=== PATIENT | male | born 1995 | race Caucasian/White ===

== ENCOUNTER 2017-10-14 05:35 | Emergency (ER) | payer OTHER ==
[~2017-10-14] VITALS: Ht 182.9 cm; Wt 91.4 kg
[2017-10-14 05:43] VITALS: Ht 182.9 cm; Wt 91.4 kg
[2017-10-14] MEDS ORDERED: SOD CHLORIDE 0.9% 500 ML IV STA (06:34)
--- NOTE | 2017-10-14 06:49 | RADRPT ---
PROCEDURE: Chest. CLINICAL INDICATION: Chest pain. TECHNIQUE: Single frontal view of the chest was obtained. COMPARISON: None. FINDINGS: The cardiac silhouette is magnified. The aortic arch is unremarkable. There is no focal consolidat ion, vascular congestion or pleural effusion. There is no pneumothorax. IMPRESSION: No evidence for active cardiopulmonary disease. .Wander Viera MD, MD Date Time Electronically viewed and signed by .Wander Viera MD, on 10/14/2017 06:49 .T/
--- NOTE | 2017-10-14 07:13 | ERD ---
ER Documentation Chief Complaint Chief Complaint Pt. states he was reading and lost consciousness for "about 1 minute" HPI This is a 22-year-old male with no significant past medical history presents to the emergency room with a syncopal episode. The patient states that he woke up this morning and was laying on his side. When he reached for his alarm clock he felt a pulling sensation and a tearing sensation along the left pectoralis muscle. He also felt a wet dripping sensation in the same area. He states that he was not wet. He then sat up on the edge of the bed to read his phone. After short period of time he collapsed. The patient fell to the ground it was carpeted. He may have hit his head but woke up immediately and had no witnessed seizure activity. The patient had no incontinence and no postictal state. He states that he still has some mild discomfort in the left pectoralis muscle that is worse with rotational movement. He denies any prodrome of pleuritic pain, no fevers or chills or cough. No exertional syncope history, no family history of early cardiac disease Though there is cardiac disease within the family. ROS All systems reviewed and are negative except as per history of present illness. Medications Home Meds No Active Prescriptions or Reported Meds Allergies Allergies: Coded Allergies: No Known Allergy (Unverified , 10/14/17) PMhx/Soc Medical and Surgical Hx: pt denies Medical Hx, pt denies Surgical Hx FmHx Family History: coronary disease, No diabetes Physical Exam Vitals Vital Signs Date Time Temp Pulse Resp B/P Pulse Ox O2 Delivery O2 Flow Rate FiO2 10/14/17 05:43 96.8 53 22 140/90 99 Physical Exam General: Well developed, well nourished, no acute distress Head: Normocephalic, atraumatic. Eyes: Pupils equally reactive, EOM intact ENT: Moist mucous membranes Neck: Supple, no lymphadenopathy Respiratory: Lungs clear bilaterally, no distress, reproducible soft tissue tenderness along the left pectoralis muscle without rash Cardiovascular: RRR, no murmurs, rubs, or gallops Abdominal: Soft, non-tender, non-distended, no peritoneal signs : Deferred MSK: No edema, no unilateral swelling, 5/5 strength, no pulse deficits Neurologic: Alert and oriented, moving all extremities, normal speech, no focal weakness, no cerebellar signs Skin: No rash Psych: Normal mood Result Diagram: 10/14/17 0700 10/14/17 0700 Results 24 hrs Laboratory Tests Test 10/14/17 07:00 White Blood Count 7.310^3/ul Red Blood Count 5.2110^6/ul Hemoglobin 16.2g/dl Hematocrit 45.0% Mean Corpuscular Volume 86.4fl Mean Corpuscular Hemoglobin 31.1pg Mean Corpuscular Hemoglobin Concent 36.0g/dl Red Cell Distribution Width 12.6% Platelet Count 70799^3/UL Mean Platelet Volume 9.9fl Neutrophils % 49.1% Lymphocytes % 33.2% Monocytes % 9.1% Eosinophils % 7.8% Basophils % 0.5% Nucleated Red Blood Cells % 0.0/100WBC Neutrophils # 3.610^3/ul Lymphocytes # 2.410^3/ul Monocytes # 0.710^3/ul Eosinophils # 0.610^3/ul Basophils # 0.010^3/ul Nucleated Red Blood Cells # 0.010^3/ul Sodium Level 143mmol/L Potassium Level 3.5mmol/L Chloride Level 105mmol/L Carbon Dioxide Level 28mmol/L Anion Gap 14 Blood Urea Nitrogen 15mg/dl Creatinine 0.94mg/dl Glucose Level 88mg/dl Calcium Level 9.2mg/dl Troponin I < 0.012ng/ml Current Medications Medications (Trade) Dose Ordered Sig/Jessica Route PRN Reason Start Time Stop Time Status Last Admin Dose Admin Sodium Chloride (NS) 500 ml @ 500 mls/hr Q1H STAT IV 10/14/17 06:34 10/14/17 07:33 DC 10/14/17 07:26 IV Flush 10 ml 10 ml STK-MED ONCE .ROUTE 10/14/17 07:58 10/14/17 07:59 DC Sodium Chloride 100 ml @ ud STK-MED ONCE .ROUTE 10/14/17 07:58 10/14/17 07:59 DC Iohexol (Omnipaque) 100 ml @ ud STK-MED ONCE .ROUTE 10/14/17 07:58 10/14/17 07:59 DC Iohexol (Omnipaque 350mg/ ml) 50 ml STK-MED ONCE .ROUTE 10/14/17 07:58 10/14/17 07:59 DC Procedures/MDM EKG, MONITORS, & DIAGNOSTIC IMAGING: EKG: I reviewed and interpreted a 12-lead EKG. Rhythm: Normal sinus rhythm Ectopy: None Intervals: No abnormalities, normal QRS and QTC, no Brugada ST segments: No elevations or depressions T waves: No contiguous inversions Chest x-ray: I reviewed and interpreted a 1 view of the chest Mediastinum: No enlargement Cardiac silhouette: No cardiomegaly Airspace: Clear lung foster bilaterally without evidence of pneumothorax Bones: No evidence of fracture CTA for dissection: IMPRESSION: 1. No evidence of aortic dissection or aneurysm. 2. No central pulmonary emboli. 3. No evidence of lung infiltrates, pulmonary nodules, thoracic lymphadenopathy or effusions. LAB INTERPRETATION: Negative troponin, normal electrolytes MEDICAL DECISION MAKING: The patient presents with an odd presentation. He had a pulling sensation in his chest with a white dripping sensation in his chest and then a syncopal episode. I believe the most common explanation for the patient's symptoms is a pain response leading to orthostasis versus vasovagal syncope. However what is bizarre is at the patient had some chest pain and then a syncopal episode. This we are dripping sensation could be described as a neurologic sign that may suggest possibility of dissection though the patient has no migratory pain and no risk factors for dissection. Additionally the patient has no pleuritic pain no shortness of breath no tachycardia no signs of DVT. I do not believe this is consistent with pulmonary embolism. The patient has no exertional signs or symptoms concerning for cardiomyopathy. The patient has no murmur. No fevers or chills. The patient has an EKG that shows normal QRS and QTC with no evidence of Brugada. ER COURSE: The patient's laboratory testing and diagnostic imaging is otherwise unrevealing. CT shows no evidence of PE or dissection. The patient is resting comfortably. Again we talked about his head injury. The patient states that he may have hit his head. He has a small abrasion on the forehead. However no signs or symptoms concerning for clinically significant traumatic brain injury. I believe the risks of radiation outweigh the benefits of CT imaging. He has a nonfocal neurologic exam. At this point I feel the patient can be safely discharged home. He was advised to establish a primary care physician and may require further outpatient workup for syncope if this reoccurs. I kept the patient and/or family informed of laboratory and diagnostic imaging results throughout the emergency room course. DISPOSITION PLAN: We discussed follow up with the patient's primary care doctor within 24 to 48 hours as needed. We also discussed return to the emergency room for worsening symptoms or worsening condition. Outpatient referral: Primary are Discharge Medications: OTC APAP and motrin Departure Diagnosis: Primary Impression: Syncope Syncope type: vasovagal syncope Qualified Code: R55 - Vasovagal syncope Condition: Stable MAXIMILIAN MCADAMS MD Oct 14, 2017 07:13
[2017-10-14 07:36] LABS: BASOPHILS % 0.5 % (0.0-2.0); EOSINOPHILS # 0.6 10^3/ul (0.0-0.5); EOSINOPHILS % 7.8 % (0.0-7.0); HEMOGLOBIN 16.2 g/dl (14.0-18.0); LYMPHOCYTES # 2.4 10^3/ul (0.8-2.9); LYMPHOCYTES % 33.2 % (15.0-51.0); MEAN CORPUSCULAR HEMOGLOBIN 31.1 pg (29.0-33.0); MEAN CORPUSCULAR VOLUME 86.4 fl (82.0-101.0); MEAN PLATELET VOLUME 9.9 fl (7.4-10.4); MONOCYTE # 0.7 10^3/ul (0.3-0.9); MONOCYTES % 9.1 % (0.0-11.0); NEUTROPHIL # 3.6 10^3/ul (1.6-7.5); NEUTROPHILS % 49.1 % (39.0-77.0); PLATELET COUNT 225 10^3/UL (140-415); RED BLOOD COUNT 5.21 10^6/ul (4.70-6.10); RED CELL DISTRIBUTION WIDTH 12.6 % (11.5-14.5); WHITE BLOOD COUNT 7.3 10^3/ul (4.8-10.8)
[2017-10-14 07:46] LABS: ANION GAP 14 (8-16); BLOOD UREA NITROGEN 15 mg/dl (7-20); CALCIUM 9.2 mg/dl (8.4-10.2); CARBON DIOXIDE 28 mmol/L (21-31); CHLORIDE 105 mmol/L (97-110); CREATININE 0.94 mg/dl (0.61-1.24); GLUCOSE 88 mg/dl (70-220); POTASSIUM 3.5 mmol/L (3.5-5.1); SODIUM 143 mmol/L (135-144)
[2017-10-14] MEDS ORDERED: IOHEXOL 350MG/ML 50 ML BTL ONE (07:58)
[2017-10-14] MEDS ORDERED: IOHEXOL 100 ML ONE (07:58)
[2017-10-14] MEDS ORDERED: SOD CHLORIDE 0.9% 100 ML ONE (07:58)
[2017-10-14 08:00] LABS: TROPONIN-I < 0.012 ng/ml (0.00-0.12)
--- NOTE | 2017-10-14 08:37 | RADRPT ---
PROCEDURE: CT angiogram of the chest with contrast. CLINICAL INDICATION: Rule out aortic dissection TECHNIQUE: CT scan of the chest with contrast was performed on a multidetector high-resolution CT scan. The patient was scanned following the uncomplicated intravenous administration of 125 ml Omni paque- 350. Coronal and sagittal reformatted images were obtained from the axial source images. [facility] CT angiogram of the chest with contrast protocols were performed. 2-D and 3-D reformats were pe rformed. The total exam CTDI equals 49.58 mGy and the total exam DLP equals 696.57 mGy-cm. One or more of the following dose reduction techniques were used: - Automated exposure control. - Adjustment of the mA and/or kV according to patient size. Use of iterative reconstruction technique. Dicom images are available COMPARISON: Chest earlier same day FINDINGS: The thoracic and proximal abdominal aorta is normal in size without aneurysm, dissection or periaort ic fluid collections. The pulmonary outflow tract, right and left main pulmonary arteries, right and left interlobar and primary intersegmental pulmonary arteries are unremarkable. No central pulmonar y emboli. Negative for pulmonary arterial hypertension or right heart strain. The brachial cephalic artery, right left subclavian arteries and right left proximal common carotid and vertebral arteries are unremarkable. The celiac axis, SMA and solitary right and left renal arteries are unremarkable. The heart is within normal limits in size without pericardial effusion. Amorphous soft tissue within the anterior superior mediastinum is consistent with residual thymic tissue. No evidence of mediast inal, hilar or axillary lymphadenopathy. There are left hilar calcified lymph nodes. No evidence of pleural effusions and pneumothorax. The lungs are clear without evidence of infiltrates or pulmonary nodules bilaterally. Images of the upper abdomen are unremarkable. Thoracic and upper abdominal cameron are unremarkable. O sseous structures are unremarkable. IMPRESSION: 1. No evidence of aortic dissection or aneurysm. 2. No central pulmonary emboli. 3. No evidence of lung infiltrates, pulmonary nodules, thoracic lymphadenopathy or effusions. RPTAT:AAJJ Physician Sarath Date Time Electronically viewed and signed by Physician Sarath on 10/14/2017 08:37 BM/
[2017-10-14 09:52] VITALS: BP 123/72; PULSE 60; RESP 18; TEMP 98.6
== END 2017-10-14 10:00 | disposition home or self-care (01) ==
LOC: E/R 05:35
DX: R55 Syncope and collapse (principal)
CPT/HCPCS: 36415; 71010; 71275; 80048; 84484; 85025; 93005; J7040; Q9967; Z7502; Z7610